=== PATIENT | male | born 1965 | race Two or more races ===

== ENCOUNTER 2020-12-09 10:52 | Outpatient (CLI) | payer MEDICAID, OTHER ==
[2020-12-09] MEDS ORDERED: LISI-170 PO (11:54)
[2020-12-09] MEDS ORDERED: OMEG1CAP34 PO (11:54)
[2020-12-09] MEDS ORDERED: HYDR25TA6 PO (11:54)
[2020-12-09] MEDS ORDERED: ALLO100T30 PO (11:54)
[2020-12-09 12:33] LABS: BASOPHILS % (AUTO) 1 % (0-1); EOSINOPHILS % (AUTO) 3 % (1-7); LYMPHOCYTES % (AUTO) 33 % (22-44); MEAN CORPUSCULAR HEMOGLOBIN 31.1 pg (27.5-34.5); MEAN CORPUSCULAR HGB CONC 34.6 g/dL (33.2-36.2); MEAN PLATELET VOLUME 8.2 fL (7.4-10.4); MONOCYTES % (AUTO) 7 % (2-9); NEUTROPHILS % (AUTO) 56 % (42-75); PLATELET COUNT 352 x10^3/uL (130-400); RED BLOOD COUNT 4.28 x10^6/uL (4.38-5.82); RED CELL DISTRIBUTION WIDTH 14.6 % (9.4-14.8)
[2020-12-09 12:43] LABS: CHLORIDE 105 mmol/L (98-107); INTERNATIONAL NORMALIZED RATIO 1.03 (0.93-1.1)
[2020-12-09 12:54] LABS: ALANINE AMINOTRANSFERASE 23 U/L (12-78); ALBUMIN 3.8 g/dL (3.4-5.0); ALKALINE PHOSPHATASE 112 U/L (45-117); ANION GAP 8 mmol/L (5-15); BILIRUBIN,TOTAL 0.6 mg/dL (0.2-1.0); CALCIUM 9.2 mg/dL (8.5-10.1); CREATININE 1.37 mg/dL (0.7-1.3); TOTAL PROTEIN 8.1 g/dL (6.4-8.2)
== END 2020-12-09 23:59 | disposition home or self-care (01) ==
LOC: STAR 10:52
PROVIDERS: ATTEND Orthopaedic Surgery
DX: Z01.810 Encounter for preprocedural cardiovascular examination (principal); Z01.818 Encounter for other preprocedural examination; M16.11 Unilateral primary osteoarthritis, right hip; M25.551 Pain in right hip; R94.31 Abnormal electrocardiogram [ECG] [EKG]; Z79.01 Long term (current) use of anticoagulants; Z20.822 Contact with and (suspected) exposure to COVID-19
CPT/HCPCS: 36415; 80053; 83036; 85025; 85610; 85730; 87081; 87806; 93005; U0003; U0005; G0475

== ENCOUNTER 2020-12-13 05:18 | Observation (INO) | payer MEDICAID, OTHER ==
[~2020-12-13] VITALS: Ht 182.9 cm; Wt 111.5 kg
[~2020-12-13 05:18] MED LIST: ALLO100T30 PO; HYDR25TA6 PO; LISI-170 PO; OMEG1CAP34 PO
[2020-12-13 06:19] VITALS: BP 132/85
[2020-12-13] MEDS ORDERED: ACETAMINOPHEN 500 MG TABLET PO ONE (06:30)
[2020-12-13] MEDS ORDERED: GABAPENTIN 300 MG CAPSULE PO ONE (06:30)
[2020-12-13] MEDS ORDERED: LACTATED RINGERS 1,000 ML IV SCH (06:30)
[2020-12-13] MEDS ORDERED: CHLORHEXIDINE 15 ML UDC PO ONE (06:30)
[2020-12-13] MEDS ORDERED: TRANEXAMIC ACID 100 MG/ML, 10ML ONE (08:11)
[2020-12-13] MEDS ORDERED: KETOROLAC 60 MG/2 ML ONE (08:11)
[2020-12-13] MEDS ORDERED: EPINEPHRINE 1 MG/ML, 1ML ONE (08:12)
[2020-12-13] MEDS ORDERED: VANCOMYCIN 1,000 MG ONE (08:12)
[2020-12-13] MEDS ORDERED: ROPIvacaine/PF 0.2%, 20 ML ONE (08:12)
[2020-12-13] MEDS ORDERED: MIDAZOLAM 1 MG/ML, 2ML ONE (08:18)
[2020-12-13] MEDS ORDERED: FENTANYL PF 250 MCG/5ML ONE (08:18)
[2020-12-13] MEDS ORDERED: ALUMINUM/MAG/SIMETHICONE 30 ML UDC PO PRN (08:30)
[2020-12-13] MEDS ORDERED: DIPHENHYDRAMINE 50 MG/ML, 1ML IVPush PRN (08:30)
[2020-12-13] MEDS ORDERED: LIDOCAINE 1%, 20ML ONE (08:30)
[2020-12-13] MEDS ORDERED: DEXAMETHASONE 4 MG/ML, 1ML ONE (08:30)
[2020-12-13] MEDS ORDERED: OXYcodone 5 MG/5 ML ORAL.SOL UDC PO PRN (08:30)
[2020-12-13] MEDS ORDERED: ONDANSETRON 4 MG TABLET PO PRN (08:30)
[2020-12-13] MEDS ORDERED: PROPOFOL 10 MG/ML, 20ML ONE (08:30)
[2020-12-13] MEDS ORDERED: ACETAMINOPHEN 650 MG/20.3 ML UDC PO PRN (08:30)
[2020-12-13] MEDS ORDERED: NEOSTIGMINE 1 MG/ML, 10ML ONE (08:30)
[2020-12-13] MEDS ORDERED: TRANEXAMIC ACID 1,000 MG in SODIUM CHLORIDE 0.9% 100 ML IVPB ONE (08:30)
[2020-12-13] MEDS ORDERED: METHOCARBAMOL 1,000 MG in DEXTROSE 5% 100 ML IV PRN (08:30)
[2020-12-13] MEDS ORDERED: ONDANSETRON 2MG/ML, 2ML IVPush PRN ×2 (08:30)
[2020-12-13] MEDS ORDERED: SUCCINYLCHOLINE 20 MG/ML, 10ML ONE (08:30)
[2020-12-13] MEDS ORDERED: PROMETHAZINE 25 MG/ML, 1ML IVPush PRN (08:30)
[2020-12-13] MEDS ORDERED: KETAMINE 50 MG/ML, 10ML ONE (08:30)
[2020-12-13] MEDS ORDERED: DIPHENHYDRAMINE 50 MG CAPSULE PO PRN (08:30)
[2020-12-13] MEDS ORDERED: FENTANYL PF 100 MCG/2ML IV PRN (08:30)
[2020-12-13] MEDS ORDERED: LORazepam 2 MG/ML, 1ML IVPush PRN (08:30)
[2020-12-13] MEDS ORDERED: MAGNESIUM HYDROXIDE 8%, 30ML UDC PO PRN (08:30)
[2020-12-13] MEDS ORDERED: ONDANSETRON 2MG/ML, 2ML ONE (08:30)
[2020-12-13] MEDS ORDERED: HYDROmorphone 1 MG/ML, 1ML INJ IVPush PRN ×2 (08:30)
[2020-12-13] MEDS ORDERED: hydrALAzine 20 MG/ML, 1ML IV PRN (08:30)
[2020-12-13] MEDS ORDERED: POLYETHYLENE GLYCOL 17 GM PACKET PO PRN (08:30)
[2020-12-13] MEDS ORDERED: ACETAMINOPHEN 325 MG TABLET PO PRN (08:30)
[2020-12-13] MEDS ORDERED: SENNA/DOCUSATE TABLET PO PRN (08:30)
[2020-12-13] MEDS ORDERED: METOCLOPRAMIDE 5 MG/ML, 2ML IVPush PRN (08:30)
[2020-12-13] MEDS ORDERED: GLYCOPYRROLATE 0.2MG/1ML, 5ML ONE (08:30)
[2020-12-13] MEDS ORDERED: LABETALOL 5MG/ML, 20ML IV PRN (08:30)
[2020-12-13] MEDS ORDERED: ROCURONIUM 10 MG/ML,10ML ONE (08:30)
[2020-12-13] MEDS ORDERED: HYDROmorphone 1 MG/ML, 1ML INJ ONE (08:57)
[2020-12-13] MEDS ORDERED: KETOROLAC 30 MG/1 ML ONE (10:40)
[2020-12-13] MEDS ORDERED: FENTANYL PF 100 MCG/2ML ONE (10:43)
[2020-12-13] MEDS: KETOROLAC 30 MG/1 ML IV SCH ×2 (10:45→18:45)
[2020-12-13 11:35] VITALS: BP 143/89
[2020-12-13] MEDS: TAMSULOSIN 0.4 MG CAP.ER.24H PO SCH (12:15)
[2020-12-13] MEDS: POTASSIUM CHLORIDE 20 MEQ in D5%-0.45% NACL 1,000 ML IV SCH ×2 (12:15→21:37)
[2020-12-13] MEDS: DOCUSATE 100 MG CAPSULE PO SCH ×2 (12:15→21:35)
[2020-12-13 12:43] VITALS: BP 136/81
[2020-12-13] MEDS: CEFAZOLIN PMX 1GM/50ML 50 ML IVPB SCH (16:52)
[2020-12-13 18:11] VITALS: BP 94/66
[2020-12-13 18:12] VITALS: BP 130/84
[2020-12-13] MEDS: ASPIRIN 81 MG TABLET EC PO SCH ×2 (18:45→19:18)
[2020-12-13 19:27] VITALS: BP 102/69
[2020-12-14 00:19] VITALS: BP 101/63
[2020-12-14] MEDS: CEFAZOLIN PMX 1GM/50ML 50 ML IVPB SCH (00:55)
[2020-12-14] MEDS: KETOROLAC 30 MG/1 ML IV SCH (02:18)
[2020-12-14 04:38] VITALS: BP 96/52
[2020-12-14] MEDS: OXYcodone IR 5MG TABLET PO PRN ×3 (05:35→16:54)
[2020-12-14] MEDS: POTASSIUM CHLORIDE 20 MEQ in D5%-0.45% NACL 1,000 ML IV SCH ×2 (05:38→16:54)
[2020-12-14 07:58] VITALS: BP 106/64
[2020-12-14] MEDS ORDERED: LISINOPRIL 40 MG TABLET PO SCH (09:00)
[2020-12-14] MEDS ORDERED: ALLOPURINOL 300 MG TABLET PO SCH (09:00)
[2020-12-14] MEDS ORDERED: HYDROCHLOROTHIAZIDE 25 MG TABLET PO SCH (09:00)
[2020-12-14] MEDS: TAMSULOSIN 0.4 MG CAP.ER.24H PO SCH (09:11)
[2020-12-14] MEDS: ASPIRIN 81 MG TABLET EC PO SCH (09:11)
[2020-12-14] MEDS: DOCUSATE 100 MG CAPSULE PO SCH (09:11)
[2020-12-14 13:29] VITALS: BP 99/61
== END 2020-12-14 18:03 | disposition home or self-care (01) ==
LOC: OUT 05:18 → ORIP 08:13 → 4NE 11:31
PROVIDERS: ADMIT Orthopaedic Surgery; ATTEND Orthopaedic Surgery
DX: M87.9 Osteonecrosis, unspecified (principal); M16.11 Unilateral primary osteoarthritis, right hip; M21.70 Unequal limb length (acquired), unspecified site; G47.30 Sleep apnea, unspecified; E66.9 Obesity, unspecified; I10 Essential (primary) hypertension; E78.5 Hyperlipidemia, unspecified; Z87.891 Personal history of nicotine dependence; Z79.899 Other long term (current) drug therapy
CPT/HCPCS: 27130; 36415; 72170; 85014; 85018; 86850; 86900; 96361; 96365; 96366; 96375; 96376; 97116; 97162; 97166; 97530; C1713; C1776; G0378; J0171; J0330; J0690; J1100; J1170; J1885; J2250; J2405; J2704; J2710; J2795; J3010; J3370; J3480; J3490; J7120

== ENCOUNTER 2021-03-03 07:23 | Outpatient (CLI) | payer MEDICAID ==
[2021-03-03] MEDS ORDERED: OMEGA 3 PO (07:44)
[2021-03-03] MEDS ORDERED: TOPI100C6 PO (07:44)
[2021-03-03 08:28] LABS: ALBUMIN 3.2 g/dL (3.4-5.0); ANION GAP 7 mmol/L (5-15); CHLORIDE 111 mmol/L (98-107)
[2021-03-03 08:31] LABS: ALANINE AMINOTRANSFERASE 30 U/L (12-78); ALKALINE PHOSPHATASE 137 U/L (45-117); BILIRUBIN,TOTAL 0.3 mg/dL (0.2-1.0); CREATININE 1.14 mg/dL (0.7-1.3); TOTAL PROTEIN 7.6 g/dL (6.4-8.2)
== END 2021-03-03 23:59 | disposition home or self-care (01) ==
LOC: STAR 07:23
PROVIDERS: ATTEND Orthopaedic Surgery
DX: Z01.818 Encounter for other preprocedural examination (principal); M17.11 Unilateral primary osteoarthritis, right knee
CPT/HCPCS: 36415; 80053; 87081

== ENCOUNTER 2021-03-14 09:59 | Observation (INO) | payer MEDICAID ==
[~2021-03-14] VITALS: Ht 182.9 cm; Wt 114.0 kg
[~2021-03-14 09:59] MED LIST changes: +OMEGA 3 PO; +TOPI100C6 PO
[2021-03-14] MEDS ORDERED: CHOL10003 PO (10:45)
[2021-03-14] MEDS ORDERED: GABAPENTIN 300 MG CAPSULE ONE (10:49)
[2021-03-14] MEDS ORDERED: ACETAMINOPHEN 500 MG TABLET ONE (10:49)
[2021-03-14] MEDS ORDERED: GABAPENTIN 300 MG CAPSULE PO ONE (11:00)
[2021-03-14] MEDS ORDERED: ACETAMINOPHEN 500 MG TABLET PO ONE (11:00)
[2021-03-14] MEDS ORDERED: MIDAZOLAM 1 MG/ML, 2ML ONE (11:10)
[2021-03-14] MEDS ORDERED: FENTANYL PF 250 MCG/5ML ONE ×2 (11:10→13:35)
[2021-03-14] MEDS ORDERED: GLYCOPYRROLATE 0.2MG/1ML, 5ML ONE (11:11)
[2021-03-14] MEDS ORDERED: ROCURONIUM 10MG/ML,5ML ONE (11:11)
[2021-03-14] MEDS ORDERED: PROPOFOL 10 MG/ML, 20ML ONE (11:11)
[2021-03-14] MEDS ORDERED: CEFAZOLIN 1,000 MG ONE (11:11)
[2021-03-14] MEDS ORDERED: NEOSTIGMINE 1 MG/ML, 10ML ONE (11:11)
[2021-03-14] MEDS ORDERED: LACTATED RINGERS 1,000 ML IV SCH (11:30)
[2021-03-14] MEDS ORDERED: CHLORHEXIDINE 15 ML UDC PO ONE (11:30)
[2021-03-14] MEDS ORDERED: EPINEPHRINE 1 MG/ML, 1ML ONE (12:16)
[2021-03-14] MEDS ORDERED: KETOROLAC 60 MG/2 ML ONE (12:16)
[2021-03-14] MEDS ORDERED: SODIUM CHLORIDE 0.9% 0 ML ONE (12:16)
[2021-03-14] MEDS ORDERED: ROPIvacaine/PF 0.2%, 20 ML ONE (12:16)
[2021-03-14] MEDS ORDERED: LIDOCAINE-MPF 2% ,5ML ONE (12:27)
[2021-03-14] MEDS ORDERED: LABETALOL 5MG/ML, 20ML IV PRN (13:00)
[2021-03-14] MEDS ORDERED: MEPERIDINE/PF 25MG/0.5ML IVPush PRN (13:00)
[2021-03-14] MEDS ORDERED: ACETAMINOPHEN 325 MG TABLET PO PRN (13:00)
[2021-03-14] MEDS ORDERED: FENTANYL PF 100 MCG/2ML IV PRN (13:00)
[2021-03-14] MEDS ORDERED: morphine SULFATE 10 MG/ML, 1ML IVPush PRN (13:00)
[2021-03-14] MEDS ORDERED: hydrALAzine 20 MG/ML, 1ML IV PRN (13:00)
[2021-03-14] MEDS ORDERED: ONDANSETRON 2MG/ML, 2ML IVPush PRN ×2 (13:00→13:30)
[2021-03-14] MEDS ORDERED: HYDROmorphone 1 MG/ML, 1ML INJ IVPush PRN (13:00)
[2021-03-14] MEDS ORDERED: OXYcodone 5 MG/5 ML ORAL.SOL UDC PO PRN (13:00)
[2021-03-14] MEDS ORDERED: METOCLOPRAMIDE 5 MG/ML, 2ML IVPush PRN (13:30)
[2021-03-14] MEDS ORDERED: ACETAMINOPHEN 650 MG/20.3 ML UDC PO PRN (13:30)
[2021-03-14] MEDS ORDERED: HYDROmorphone 2 MG/ML, 1ML IVPush PRN (13:30)
[2021-03-14] MEDS ORDERED: DIPHENHYDRAMINE 50 MG/ML, 1ML IVPush PRN (13:30)
[2021-03-14] MEDS ORDERED: ONDANSETRON 4 MG TABLET PO PRN (13:30)
[2021-03-14] MEDS ORDERED: SENNA/DOCUSATE TABLET PO PRN (13:30)
[2021-03-14] MEDS ORDERED: DIPHENHYDRAMINE 50 MG CAPSULE PO PRN (13:30)
[2021-03-14] MEDS ORDERED: POLYETHYLENE GLYCOL 17 GM PACKET PO PRN (13:30)
[2021-03-14] MEDS ORDERED: PROMETHAZINE 25 MG/ML, 1ML IM PRN (13:30)
[2021-03-14] MEDS ORDERED: ALUMINUM/MAG/SIMETHICONE 30 ML UDC PO PRN (13:30)
[2021-03-14] MEDS ORDERED: MAGNESIUM HYDROXIDE 8%, 30ML UDC PO PRN (13:30)
[2021-03-14] MEDS ORDERED: FENTANYL PF 100 MCG/2ML ONE (13:55)
[2021-03-14 16:00] VITALS: BP 146/101
[2021-03-14] MEDS: D5%-0.45NACL+KCL 20MEQ 1,000 ML IV SCH (18:07)
[2021-03-14] MEDS: KETOROLAC 30 MG/1 ML IV SCH (18:07)
[2021-03-14] MEDS: ASPIRIN 81 MG TABLET EC PO SCH (18:07)
[2021-03-14 19:44] VITALS: BP 136/89
[2021-03-14] MEDS: CEFAZOLIN PMX 1GM/50ML 50 ML IVPB SCH (21:07)
[2021-03-14] MEDS: DOCUSATE 100 MG CAPSULE PO SCH (21:07)
[2021-03-14] MEDS: OXYcodone IR 5MG TABLET PO PRN (21:10)
[2021-03-15 00:13] VITALS: BP 138/90
[2021-03-15] MEDS: KETOROLAC 30 MG/1 ML IV SCH ×2 (01:44→09:05)
[2021-03-15] MEDS: D5%-0.45NACL+KCL 20MEQ 1,000 ML IV SCH (03:30)
[2021-03-15 04:08] VITALS: BP 142/84
[2021-03-15] MEDS: CEFAZOLIN PMX 1GM/50ML 50 ML IVPB SCH (05:21)
[2021-03-15] MEDS ORDERED: DEXAMETHASONE 4 MG/ML, 1ML IVPush SCH (06:00)
[2021-03-15 08:10] VITALS: BP 133/83
[2021-03-15] MEDS ORDERED: ASPI81TA45 PO (08:39)
[2021-03-15] MEDS ORDERED: ALLOPURINOL 300 MG TABLET PO SCH (09:00)
[2021-03-15] MEDS ORDERED: TAMSULOSIN 0.4 MG CAP.ER.24H PO SCH (09:00)
[2021-03-15] MEDS ORDERED: HYDROCHLOROTHIAZIDE 25 MG TABLET PO SCH (09:00)
[2021-03-15] MEDS ORDERED: LISINOPRIL 40 MG TABLET PO SCH (09:00)
[2021-03-15] MEDS ORDERED: CHOLECALCIFEROL 1,000 UNIT TABLET PO SCH (09:00)
[2021-03-15] MEDS: DOCUSATE 100 MG CAPSULE PO SCH (09:03)
[2021-03-15] MEDS: ASPIRIN 81 MG TABLET EC PO SCH (09:03)
[2021-03-15] MEDS: OXYcodone IR 5MG TABLET PO PRN (09:03)
== END 2021-03-15 13:18 | disposition home or self-care (01) ==
LOC: OUT 09:59 → ORIP 13:20 → 4NE 15:59
PROVIDERS: ADMIT Orthopaedic Surgery; ATTEND Orthopaedic Surgery
DX: M17.11 Unilateral primary osteoarthritis, right knee (principal); Z20.822 Contact with and (suspected) exposure to COVID-19; M10.9 Gout, unspecified; I10 Essential (primary) hypertension; E66.9 Obesity, unspecified; M19.90 Unspecified osteoarthritis, unspecified site; M71.21 Synovial cyst of popliteal space [Baker], right knee; Z79.899 Other long term (current) drug therapy; Z79.82 Long term (current) use of aspirin
CPT/HCPCS: 27447; 36415; 73560; 85014; 85018; 87635; 96361; 96365; 96366; 96375; 96376; 97110; 97161; C1776; G0378; J0690; J1100; J1885; J2250; J2704; J2710; J3010; J3480; J3490; J7120; J0171; J2795